=== PATIENT | female | born 1985 | race Two or more races ===

== ENCOUNTER 2025-01-22 06:23 | Emergency (ER) | payer MEDICAID ==
[2025-01-22] MEDS: diphenhydrAMINE 50 MG/ML SDV IM ONE (06:57)
[2025-01-22] MEDS: methylPREDNISolone Sodium Succinate 125 MG/2 ML SDV IM ONE (06:58)
[2025-01-22] MEDS: Famotidine 20 MG Tab PO ONE (06:58)
== END 2025-01-22 07:34 | disposition home or self-care (01) ==
LOC: VM.ED 06:23
DX: T78.49XA Other allergy, initial encounter (principal); Z79.899 Other long term (current) drug therapy
CPT/HCPCS: 96372; 99283; A9270; J1200; J2919

== ENCOUNTER 2025-03-29 21:08 | Emergency (ER) | payer MEDICAID | END 2025-03-29 22:07 | disposition home or self-care (01) | LOC: VM.ED 21:08 | DX: S93.402A Sprain of unspecified ligament of left ankle, initial encounter (principal); X58.XXXA Exposure to other specified factors, initial encounter | CPT/HCPCS: 73610-LT; 73630-LT; 99283; A9270-GY ==

== ENCOUNTER 2025-05-17 13:28 | Emergency (ER) | payer MEDICAID | END 2025-05-17 14:51 | disposition home or self-care (01) | LOC: VM.ED 13:28 | DX: R51.9 Headache, unspecified (principal); B34.9 Viral infection, unspecified; R11.2 Nausea with vomiting, unspecified; Z79.899 Other long term (current) drug therapy | CPT/HCPCS: 87426-QW; 99283; 99284 ==

== ENCOUNTER 2025-06-11 03:42 | Emergency (ER) | payer MEDICAID ==
[2025-06-11] MEDS: Ketorolac 30 MG/ML SDV IM ONE (03:56)
== END 2025-06-11 05:19 | disposition home or self-care (01) ==
LOC: VM.ED 03:42
DX: M25.571 Pain in right ankle and joints of right foot (principal); Z79.899 Other long term (current) drug therapy
CPT/HCPCS: 73610-RT; 96372; 99283; J1885

== ENCOUNTER 2025-07-26 17:51 | Emergency (ER) | payer MEDICAID ==
[2025-07-26 18:46] LABS: BASOPHILS ABSOLUTE AUTO 0.0 x10^3/uL (0.0-0.2); BASOPHILS PERCENT AUTO 0.2 % (0.2-1.2); EOSINOPHILS ABSOLUTE AUTO 0.1 x10^3/uL (0.0-0.5); EOSINOPHILS PERCENT AUTO 1.2 % (0.0-4.0); IMMATURE GRAN ABSOLUTE AUTO 0.01 x10^3/uL (0.00-0.07); IMMATURE GRAN PERCENT AUTO 0.10 % (0.00-0.43); LYMPHOCYTES ABSOLUTE AUTO 1.9 x10^3/uL (1.0-4.8); LYMPHOCYTES PERCENT AUTO 23.4 % (25.0-50.0); MONOCYTES ABSOLUTE AUTO 0.4 x10^3/uL (0.0-0.8); MONOCYTES PERCENT AUTO 5.1 % (2.0-11.0); NEUTROPHILS ABSOLUTE AUTO 5.6 x10^3/uL (1.8-7.7); NEUTROPHILS PERCENT AUTO 70.0 % (50.0-80.0); PLATELET COUNT,PLT 339 x10^3/uL (130-400); RED BLOOD CELL COUNT 4.91 x10^6/uL (4.00-5.50); WHITE BLOOD CELL COUNT,WBC 8.1 x10^3/uL (4.0-10.0)
[2025-07-26] MEDS: Ondansetron 4 MG/2 ML SDV IVPUSH ONE (18:48)
[2025-07-26 19:06] LABS: A/G RATIO 0.92; ALANINE AMINOTRANSFERASE,ALT 26 U/L (14-59); ASPARTATE AMNIOTRANSFERASE,AST 25 U/L (15-37); BILIRUBIN TOTAL 0.2 mg/dL (0.2-1.0); BLOOD UREA NITROGEN,BUN 13 mg/dL (7-18); CARBON DIOXIDE,CO2 27 mmol/L (21-32); CHLORIDE,CL 105 mmol/L (98-107); CREATININE 0.7 mg/dL (0.55-1.02); GLUCOSE RANDOM 110 mg/dL (70-99); POTASSIUM,K 3.8 mmol/L (3.5-5.1); PROTEIN TOTAL,TP 7.3 g/dL (6.4-8.2); SODIUM,NA 141 mmol/L (136-145)
[2025-07-26 19:07] LABS: ESTIMATED GFR 113 mL/min (>=60)
[2025-07-26 19:34] LABS: APPEARANCE,URINE CLEAR (CLEAR); GLUCOSE,URINE NEGATIVE (NEGATIVE); OCCULT BLOOD,URINE TRACE-INTACT (NEGATIVE)
[2025-07-26 19:41] LABS: SQUAMOUS EPITHELIAL CELLS,UR MODERATE /HPF (NOT SEEN)
[2025-07-26] MEDS: Take Home: Ondansetron 4 MG Tab.DIS, 5 Tab Pack PO ONE (19:43)
== END 2025-07-26 19:58 | disposition home or self-care (01) ==
LOC: VM.ED 17:51
DX: R11.2 Nausea with vomiting, unspecified (principal)
CPT/HCPCS: 80053; 81001; 85025; 96361; 96374; 99284-25; J2405; J7030; Q0162